=== PATIENT | male | born 1995 | race Caucasian/White ===

== ENCOUNTER 2017-07-20 13:08 | Emergency (ER) | payer MEDICAID, SELFPAY ==
[2017-07-20 13:30] VITALS: BP 154/127; PULSE 137; RESP 24; TEMP 36.9; O2SAT 96; BMI 38.4
--- NOTE | 2017-07-20 13:34 | XR_ITS ---
XR chest 2V HISTORY: ITS.REASON: cough x1 week ORDERING PHYSICIAN: Vida Sung MD PATIENT AGE: 22 years COMPARISON: None available FINDINGS: The cardiomediastinal silhouette and pulmonary vascularity are within normal limits. The lungs are clear without infiltrates, suspicious nodules, or pleural effusions. No acute bony abnormalities. IMPRESSION: Negative chest, no acute finding
--- NOTE | 2017-07-20 13:52 | HMH.EDGENADL ---
ED Disposition Clinical Impression: Acute bronchitis, Acute allergic conjunctivitis of right eye Disposition: Home, Self-Care Condition on Discharge: Fair Additional Instructions: stop smoking start abx and eye droips. see Dr Garcia for follow upp return if not better Prescriptions: Benzonatate [Tessalon Perle 100mg Cap] 100 mg PO Q4HP PRN #21 cap PRN Reason: Cough Amoxicillin [Amoxicillin 500mg Cap] 500 mg PO TID #21 cap Ketotifen Fumarate [Zaditor] 5 ml OP Q6 #1 drops Referrals: Hardik Jimenez [Primary Care Provider] - - Critical Care Critical Care Time: No Attestation: On 07/20/17, the high probability of a clinically significant, sudden or life threatening deterioration of the following system(s) required my full and direct attention, intervention and personal management. The time I documented below is in addition to time spent performing reported procedures but includes the following listed in this critical care notation. Medical Decision Making - Medical Records Medical records reviewed: Yes: I reviewed the patient's medical records. Vital Signs: 07/20/17 13:30 Temperature 98.4 F Temperature Source Oral Pulse Rate [Right Brachial] 137 H Respiratory Rate 24 Blood Pressure [Right Arm] 154/127 Blood Pressure Mean [Right Arm] 136 Blood Pressure Source [Right Arm] Automatic Cuff Blood Pressure Position [Right Arm] Sitting 02 Sat by Pulse Oximetry 96 Oxygen Delivery Method Room Air Orders (Tests/Meds): ORDERS Category Date Time Status Chest XR 2 view (NOT portable) [XR chest 2V] Stat Exams 07/20/17 13:34 Taken - Radiology Data #1 Image(s): Chest Image Reviewed: Yes I reviewed the patient's radiology image Preliminary Findings: Normal/NAD - Saad Inquiry Pt receiving controlled substance: No Saad was queried for this patient: No General Adult HPI - General Chief complaint: PAIN Stated complaint: cough,feels bad,right eye hurts Mode of Arrival: Ambulatory Limitations: No Limitations Description of Symptoms (Recalled from ER Triage Doc. by RN): pt c/o cough x1 week, rt eye pain x3 days, vomiting since last night - History of Present Illness HPI narrative: 22 years old white male smoker, works in [employer]. He developed nonproductive cough for 1 week and right red eye redness and irritation for 3 days. He tried [id number] cough medicine without relief. Onset (ago): week(s) Location: chest Radiation: non-radiation Severity: moderate Consistency: intermittent Relieving factors: none Exacerbating factors: other (cough.) Associated symptoms: other (Right watery eye.) - Related Data Previous Rx's Medication Instructions Recorded Amoxicillin [Amoxicillin 500mg 500 mg PO TID #21 cap 07/20/17 Cap] Benzonatate [Tessalon Perle 100mg 100 mg PO Q4HP PRN #21 cap 07/20/17 Cap] Ketotifen Fumarate [Zaditor] 5 ml OP Q6 #1 drops 07/20/17 Allergies Allergy/AdvReac Type Severity Reaction Status Date / Time No Known Allergies Allergy Verified 07/20/17 13:35 [facility] History I have reviewed the patient's past medical history: Yes Medical History: Denies:: Diabetes Mellitus Type 1, Diabetes Mellitus Type 2 - *Social History Smoking Status: Current some day smoker Tobacco Type: cigarettes Alcohol Intake: never - Psychiatric History Expresses thoughts of harming self/others: None Suicide Plan Description: No Plan ROS Obtained: Yes All systems reviewed & no additional complaints Physical Exam - General General appearance: alert, in no apparent distress - Head Head exam: atraumatic, normocephalic, normal inspection - Eye Eye exam: Present: PERRL, EOMI, other (Right eye irritation and redness, no papillae. ) - ENT ENT exam: Present: normal exam, normal oropharynx, mucous membranes moist, TM's normal bilaterally, normal external ear exam - Neck Neck exam: Present: normal inspection, full ROM, trachea midline. Absent: meni
--- NOTE | 2017-07-20 13:55 | ED_ITS ---
ED Disposition Clinical Impression: Acute bronchitis, Acute allergic conjunctivitis of right eye Disposition: Home, Self-Care Condition on Discharge: Fair Additional Instructions: stop smoking start abx and eye droips. see Dr Garcia for follow upp return if not better Prescriptions: Benzonatate [Tessalon Perle 100mg Cap] 100 mg PO Q4HP PRN #21 cap PRN Reason: Cough Amoxicillin [Amoxicillin 500mg Cap] 500 mg PO TID #21 cap Ketotifen Fumarate [Zaditor] 5 ml OP Q6 #1 drops Referrals: Hardik Jimenez [Primary Care Provider] - - Critical Care Critical Care Time: No Attestation: On 07/20/17, the high probability of a clinically significant, sudden or life threatening deterioration of the following system(s) required my full and direct attention, intervention and personal management. The time I documented below is in addition to time spent performing reported procedures but includes the following listed in this critical care notation. Medical Decision Making - Medical Records Medical records reviewed: Yes: I reviewed the patient's medical records. Vital Signs: 07/20/17 13:30 Temperature 98.4 F Temperature Source Oral Pulse Rate [Right Brachial] 137 H Respiratory Rate 24 Blood Pressure [Right Arm] 154/127 Blood Pressure Mean [Right Arm] 136 Blood Pressure Source [Right Arm] Automatic Cuff Blood Pressure Position [Right Arm] Sitting 02 Sat by Pulse Oximetry 96 Oxygen Delivery Method Room Air Orders (Tests/Meds): ORDERS Category Date Time Status Chest XR 2 view (NOT portable) [XR chest 2V] Stat Exams 07/20/17 13:34 Taken - Radiology Data #1 Image(s): Chest Image Reviewed: Yes I reviewed the patient's radiology image Preliminary Findings: Normal/NAD - Saad Inquiry Pt receiving controlled substance: No Saad was queried for this patient: No General Adult HPI - General Chief complaint: PAIN Stated complaint: cough,feels bad,right eye hurts Mode of Arrival: Ambulatory Limitations: No Limitations Description of Symptoms (Recalled from ER Triage Doc. by RN): pt c/o cough x1 week, rt eye pain x3 days, vomiting since last night - History of Present Illness HPI narrative: 22 years old white male smoker, works in [email or web address]. He developed nonproductive cough for 1 week and right red eye redness and irritation for 3 days. He tried [id number] cough medicine without relief. Onset (ago): week(s) Location: chest Radiation: non-radiation Severity: moderate Consistency: intermittent Relieving factors: none Exacerbating factors: other (cough.) Associated symptoms: other (Right watery eye.) - Related Data Previous Rx's Medication Instructions Recorded Amoxicillin [Amoxicillin 500mg 500 mg PO TID #21 cap 07/20/17 Cap] Benzonatate [Tessalon Perle 100mg 100 mg PO Q4HP PRN #21 cap 07/20/17 Cap] Ketotifen Fumarate [Zaditor] 5 ml OP Q6 #1 drops 07/20/17 Allergies Allergy/AdvReac Type Severity Reaction Status Date / Time No Known Allergies Allergy Verified 07/20/17 13:35 [facility] History I have reviewed the patient's past medical history: Yes Medical History: Denies:: Diabetes Mellitus Type 1, Diabetes Mellitus Type 2 - *Social History Smoking Status: Current some day smoker
[2017-07-20 14:01] VITALS: BP 130/70; PULSE 82; RESP 18; TEMP 37
== END 2017-07-20 14:01 | disposition home or self-care (01) ==
PROVIDERS: Emergency Provider Emergency Medicine; Family Provider Family Medicine; PCP Family Medicine
DX: J20.9 Acute bronchitis, unspecified (principal); H10.11 Acute atopic conjunctivitis, right eye
CPT/HCPCS: 71046; 99281

== ENCOUNTER 2020-10-25 13:01 | Emergency (ER) | payer OTHER, SELFPAY ==
[2020-10-25 13:05] VITALS: BP 133/78; PULSE 90; RESP 19; TEMP 37; O2SAT 98; BMI 38.0
--- NOTE | 2020-10-25 13:11 | XR_ITS ---
PROCEDURE: XR HAND RT MIN 3V CLINICAL INDICATION: WC Pain COMPARISON: No exams were available for comparison FINDINGS: At the proximal aspect of the 3rd metacarpal there is a very subtle transverse lucency. This may only be related to artifact as there are other areas of similar appearing lucencies in this may even appear to extend beyond the margin of the bone. Follow-up study in 7-10 days may provide further evaluation. No other significant anomalies are evident. IMPRESSION: Possible hairline fracture at the base of the 3rd metacarpal versus artifact. Dictated by: Zachary Ferrara MD 10/25/2020 13:54 Zachary Ferrara MD in [place] 10/25/2020 13:54
--- NOTE | 2020-10-25 13:36 | HMH.EDUTC ---
[facility] [place] Disposition Clinical Impression: Metacarpal bone fracture Qualifiers: Encounter type: initial encounter Metacarpal bone: third Fracture type: closed Metacarpal location: base Fracture alignment: nondisplaced Laterality: right Qualified Code(s): S62.342A - Nondisplaced fracture of base of third metacarpal bone, right hand, initial encounter for closed fracture Disposition: Home, Self-Care Condition on Discharge: Good Instructions: How To Perform RICE (Rest, Ice, Compress, Elevate), Hand Fracture Additional Instructions: *RICE, Rest the extremity, Ice 15-20 minutes 3-4 times daily, Compress- wear the ricky wrap as discussed as much as possible to help reduce swelling and pain, Elevate the extremity when at rest *Ricky wrap/Short arm splint is for support and help control swelling, use it except in the shower. Be sure that is not to tight but not to loose either *Elevate when resting *Ibuprofen every 6-8 hours as needed for pain an inflammation. If need something more can take Tylenol in between doses of Ibuprofen to help Immediately follow up with your family doctor for new or worsening of symptoms, or no noticeable improvement over the next 3-5 days Light duty until Friday until cleared by your Orthopedics to return full duty Prescriptions: Ibuprofen [Ibuprofen 800mg Tablet] 800 mg PO TIDP PRN #20 tab PRN Reason: Moderate Pain Transmission Status: Received by [facility] Referrals: Provider,MD Bob [Primary Care Provider] - As needed Kota Stearns MD [Staff Physician] - 11/02/20 1:00 pm Forms: Work/School Release Time of Disposition: 13:51 Medical Decision Making - Saad Inquiry Pt receiving controlled substance: No Saad was queried for this patient: No Vital Signs: 10/25/20 13:05 10/25/20 13:54 Temperature 98.6 F 98.6 F Temperature Source Temporal Artery Scan Oral Pulse Rate 90 Pulse Rate [Left Brachial] 90 Respiratory Rate 19 19 Blood Pressure 133/78 Blood Pressure [Left Arm] 133/78 Blood Pressure Mean [Left Arm] 96 Blood Pressure Source [Left Arm] Automatic Cuff Blood Pressure Position [Left Arm] Sitting 02 Sat by Pulse Oximetry 98 Oxygen Delivery Method Room Air - Radiology Data #1 Image(s): Hand Image Reviewed: Yes I have reviewed radiologist's interpretation IMPRESSION: Possible hairline fracture at the base of the 3rd metacarpal versus artifact. - Physician Consults Physician Consulted: Dr Stearns Time: 14:04 Reason -: Orthopedic Eval/Care Comment/Response: Spoke with Dr Stearns office that spoke with Dr Stearns he advised short arm splint and will see him in the office on November 02@1pm [facility] [place] HPI - General Stated complaint: AO [id number] injured left hand Time Seen by Provider: 10/25/20 13:36 Mode of Arrival: Ambulatory Source of Information: Patient Limitations: No Limitations Description of Symptoms (Recalled from Triage Doc. by RN): PATIENT C/O RIGHT HAND INJURY AFTER A PIECE OF EQUIPMENT FELL ON IT AT WORK YESTERDAY HEENT Symptoms (Recalled from RN notes): No Resp Symptoms (Recalled from RN notes): No Skin Symptoms (Recalled from RN notes): No MS Symptoms (Recalled from RN notes): Yes Functional Status (Recalled from RN notes): WNL - History of Present Illness Provider Complaint: Patient state that he was at work yesterday when a piece of equiptment fell and landed on the top his right hand State that he reported it to his boss States that today he was still having pain in his right hand and his fingers looked swollen so he came in to get it checked - Related Data Previous Rx's Medication Instructions Recorded Ibuprofen [Ibuprofen 800mg 800 mg PO TIDP PRN #20 tab 10/25/20 Tablet] Allergies Allergy/AdvReac Type Severity Reaction Status Date / Time No Known Allergies Allergy Verified 07/20/17 13:35 - Worker's Comp Is this a Worker's Comp case?: No [facility] History - Hepatitis A Screen Drug use history?: No High risk sexual behavi
[2020-10-25 13:54] VITALS: BP 133/78; PULSE 90; RESP 19; TEMP 37; O2SAT 98
== END 2020-10-25 14:15 | disposition home or self-care (01) ==
PROVIDERS: Emergency Provider Nurse Practitioner
DX: S62.342A Nondisplaced fracture of base of third metacarpal bone, right hand, initial encounter for closed fracture (principal); W31.89XA Contact with other specified machinery, initial encounter; Y92.69 Other specified industrial and construction area as the place of occurrence of the external cause; Y99.0 Civilian activity done for income or pay
CPT/HCPCS: 29125; 73130; 99202; G0463

== ENCOUNTER → 2020-11-15 08:59 | Outpatient (CLI) | payer OTHER, SELFPAY ==
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
== END ==
PROVIDERS: Visit Provider Orthopaedic Surgery
DX: S62.309A Unspecified fracture of unspecified metacarpal bone, initial encounter for closed fracture (principal)
CPT/HCPCS: 73130

== ENCOUNTER 2021-01-22 09:26 | Emergency (ER) | payer OTHER, SELFPAY ==
[2021-01-22 09:30] VITALS: BP 131/83; PULSE 84; RESP 20; TEMP 36.8; O2SAT 97; BMI 38.4
--- NOTE | 2021-01-22 09:56 | HMH.EDUTC ---
[facility] [place] Disposition Clinical Impression: Exposure to COVID-19 virus Disposition: Home, Self-Care Condition on Discharge: Good Instructions: DI for COVID-19 (Suspected or Confirmed ), Coronavirus Disease 2019, Preventing the Spread of Coronavirus Discharge Instructions Additional Instructions: *Monitor Temp, Over the counter Motrin or Tylenol as directed/as needed Tylenol every 4 hours and Motrin every 6 hours (as long as your family doctor has told you that you can take it) for fever or pain. and straight to ER if unable to lower temp less than 101.0 after medication given Follow up IMMEDIATELY for new or worsening symptoms or no Noticeable improvement over the next 48-72 hours. 911 for difficulty breathing or swallowing You were tested for today for COVID19 your test result should be back in the next 24-48 hours, you may call to the [facility] to see if your test results are back in the next 48 hours [phone] [facility] hours are 9am-9pm You was given a handout with instructions for Self Quarantine and Self isolation for while you wait on test results and what to do if they are positive If you are positive the Health Dept will be contacting you also Make sure to take your Vitamins Vit. C Vit D and Zinc if you can take them Referrals: Provider,Referral, MD [Primary Care Provider] - As needed Forms: Work/School Release Time of Disposition: 09:57 Medical Decision Making - Saad Inquiry Pt receiving controlled substance: No Saad was queried for this patient: No Vital Signs: 01/22/21 09:30 Temperature 98.3 F Temperature Source Oral Pulse Rate [Right Brachial] 84 Respiratory Rate 20 Blood Pressure [Right Arm] 131/83 Blood Pressure Mean [Right Arm] 99 Blood Pressure Source [Right Arm] Automatic Cuff Blood Pressure Position [Right Arm] Sitting 02 Sat by Pulse Oximetry 97 Oxygen Delivery Method Room Air Orders (Tests/Meds): ORDERS Category Date Time Status Covid-19 Nasal PCR ([facility]) Routine Lab 01/22/21 09:42 Ordered [facility] [place] HPI - General Stated complaint: Covid Test Time Seen by Provider: 01/22/21 09:56 Mode of Arrival: Ambulatory Source of Information: Patient Limitations: No Limitations Description of Symptoms (Recalled from Triage Doc. by RN): PATIENT EXPOSED TO COVID, NEEDS TEST TO RETURN TO WORK HEENT Symptoms (Recalled from RN notes): No Resp Symptoms (Recalled from RN notes): No Skin Symptoms (Recalled from RN notes): No MS Symptoms (Recalled from RN notes): No Functional Status (Recalled from RN notes): WNL - History of Present Illness Provider Complaint: Patient state that he was recently around someone that tested positive for COVID State that he is not having any symptoms but work wanted him to get tested before he can return - Related Data Previous Rx's Medication Instructions Recorded Ibuprofen [Ibuprofen 800mg 800 mg PO TIDP PRN #20 tab 10/25/20 Tablet] Allergies Allergy/AdvReac Type Severity Reaction Status Date / Time No Known Allergies Allergy Verified 11/15/20 09:50 - Worker's Comp Is this a Worker's Comp case?: No [facility] History - Hepatitis A Screen Drug use history?: No High risk sexual behaviors?: No History of sexually transmitted infection?: No Currently employed?: No Childcare worker?: No Do you have indoor plumbing?: Yes Do you have electricity?: Yes Attestation statement:: This patient has been screened for Hepatitis A risk factors. I have reviewed the patient's past medical history: Yes Medical History: Denies:: Cancer, Diabetes Mellitus Type 1, Diabetes Mellitus Type 2, MRSA Amputation: No - Social History Smoking Status: Current some day smoker Tobacco Type: smokeless tobacco # Packs/Day (cigarettes): 1 Alcohol Intake: never Occupational Status: other Family Hx:: No significant family history ROS Obtained: Yes All systems reviewed & no additional complaints, Yes Systems reviewed as appropriate & no additional complaints - Constitutional
[2021-01-22 10:02] VITALS: BP 131/83; PULSE 84; RESP 20; TEMP 36.8; O2SAT 97
--- NOTE | 2021-01-23 09:26 | PC.NURSE ---
PT NOTIFIED OF POSITIVE COVID RESULT
== END 2021-01-22 10:05 | disposition home or self-care (01) ==
PROVIDERS: Emergency Provider Nurse Practitioner
DX: U07.1 COVID-19 (principal); F17.210 Nicotine dependence, cigarettes, uncomplicated
CPT/HCPCS: 99202; G0463; U0003

== ENCOUNTER → 2021-04-09 13:02 | Outpatient (CLI) | payer BC, SELFPAY ==
[2021-04-09 13:26] LABS: Microscopic, Urine URINE MICROSCOPIC (MICROSCOPIC)
[2021-04-09 13:42] LABS: Basophils # 0.1 K/mm3 (0-0.2); Eosinophils # 0.1 K/mm3 (0.0-0.4); Eosinophils % 1.8 % (0.1-12.0); Hematocrit 50.4 % (42.0-52.0); Lymphocytes # 1.6 K/mm3 (0.7-4.5); Lymphocytes % 28.9 % (10-50); Mean Corpuscular HGB Conc 33.7 g/dL (31.8-35.4); Mean Corpuscular Hemoglobin 29.6 pg (27.0-31.2); Mean Corpuscular Volume 87.9 fl (80-94); Mean Platelet Volume 9.4 fl (7.4-10.4); Monocytes # 0.3 K/mm3 (0.1-1.0); Monocytes % 5.6 % (1.7-9.3); Neutrophils # 3.4 K/mm3 (1.8-7.8); Neutrophils % 62.6 % (37.0-80.0); Platelet Count 199 K/mm3 (142-424); Red Blood Count 5.74 M/mm3 (4.60-6.20); Red Cell Distribution Width 13.7 % (11.5-17.5); White Blood Count 5.4 K/mm3 (4.8-10.8)
[2021-04-09 13:44] LABS: Appearance,Urine CLEAR (Clear); Blood, Urine Negative (Negative); Color,Urine YELLOW (Yellow); Glucose,Urine (UA) Negative (Negative); Ketones,Urine TRACE (Negative); Leukocyte Esterase,Urine Negative (Negative); Nitrate,Urine Negative (Negative); Protein,Urine Negative (Negative); Specific Gravity, Urine >= 1.030 (1.005-1.030)
[2021-04-09 13:45] LABS: Bilirubin,Urine 1+ (Negative)
[2021-04-09 13:50] LABS: Hemoglobin A1C 4.6 % (4.0-6.0)
[2021-04-09 13:55] LABS: Squamous Epithelial Cell,Urine Occasional #/hpf (0-5)
[2021-04-09 14:13] LABS: Alanine Aminotransferase 81 U/L (12-78); Albumin Level 4.5 g/dl (3.5-5.0); Alkaline Phosphatase 57 U/L (38-126); Anion Gap 12.4 mEq/L (5-15); Aspartate Amino Transferase 54 U/L (17-59); Bilirubin,Total 0.8 mg/dl (0.2-1.3); Blood Urea Nitrogen 6 mg/dl (9-20); Calcium 9.8 mg/dl (8.4-10.2); Carbon Dioxide 29 mmol/L (22.0-30.0); Chloride 105 mmol/L (98-107); Chol/HDL Ratio 3.2 (1-3.5); Cholesterol 117 mg/dl (140-200); Estimated Glomerular Filt Rate 119 ml/min (>60); GFR (African American) 144 ML/MIN (>60); Globulin 2.3 g/dL (1.3-3.2); Glucose 119 mg/dl (74-100); HDL Cholesterol 37 mg/dl (40-60); Potassium 4.4 mmoL/L (3.5-5.1); Sodium 142 mmol/L (136-145); Total Protein,Serum 6.8 g/dl (6.3-8.2); Triglycerides 73 mg/dl (30-150); VLDL Cholesterol 15 mg/dL (0-40)
[2021-04-09 14:23] LABS: Direct LDL Cholesterol 65.23 mg/dL (100-129)
[2021-04-11 01:16] LABS: Neisseria gonorrhoeae, NAA Negative (Negative)
[2021-04-11 10:25] LABS: HIV Screen 4th Generation wRfx Non Reactive (Non Reactive)
== END ==
PROVIDERS: Visit Provider Internal Medicine Adolescent Medicine
DX: Z00.00 Encounter for general adult medical examination without abnormal findings (principal); E66.9 Obesity, unspecified; Z68.38 Body mass index [BMI] 38.0-38.9, adult; Z11.4 Encounter for screening for human immunodeficiency virus [HIV]
CPT/HCPCS: 36415; 80053; 80061; 81001; 83036; 85025; 86703; 87491; 87591; G0432

== ENCOUNTER 2021-05-10 17:27 | Emergency (ER) | payer OTHER, BC, SELFPAY ==
[2021-05-10 17:30] VITALS: BP 151/99; PULSE 94; RESP 16; TEMP 37; O2SAT 98; BMI 37.2
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
[2021-05-10 18:48] VITALS: BP 125/74; PULSE 78; RESP 18; TEMP 36.6; O2SAT 98
== END 2021-05-10 18:50 | disposition home or self-care (01) ==
PROVIDERS: Emergency Provider Emergency Medicine; PCP Family Medicine
DX: S06.0X0A Concussion without loss of consciousness, initial encounter (principal); V43.52XA Car driver injured in collision with other type car in traffic accident, initial encounter; Y92.414 Local residential or business street as the place of occurrence of the external cause
CPT/HCPCS: 70450; 99282

== ENCOUNTER 2021-06-19 11:34 | Emergency (ER) | payer SELFPAY ==
[2021-06-19 11:37] VITALS: BP 132/77; PULSE 77; RESP 16; TEMP 37.2; O2SAT 98; BMI 36.9
--- NOTE | 2021-06-19 11:51 | CT_ITS ---
FINAL REPORT TECHNIQUE: After the administration of intravenous contrast, axial images were obtained through the abdomen and pelvis by computed tomography. This study was performed with technique to keep radiation doses as low as reasonably achievable, (ALARA). Individualized dose reduction techniques using automated exposure control or adjustment of the MA and/or KV according to the patient's size were employed. CLINICAL HISTORY: left groin pain, known hernia COMPARISON: 01/04/2019 FINDINGS: Abdomen: The lung bases are clear. The liver is normal in size and attenuation. Gallbladder is present. The spleen is unremarkable. The adrenals are normal. The pancreas is unremarkable. The kidneys enhance appropriately. The aorta is normal in caliber. There is no free fluid or adenopathy. Pelvis: The appendix is normal. The urinary bladder is unremarkable. There is no free fluid or adenopathy. There is a new, left inguinal hernia containing fat. IMPRESSION: New, left inguinal hernia containing fat. Otherwise, unremarkable exam. Reviewed, Interpreted and Dictated by Rob Thomas III, MD Transcribed by Lady Hill Authenticated by Rob Thomas III, MD on 06/19/2021 03:13:[address] [facility]
--- NOTE | 2021-06-19 12:16 | HMH.EDGENADL ---
ED Disposition Clinical Impression: Left inguinal hernia Disposition: Home, Self-Care Condition on Discharge: Good Instructions: Groin Hernia -- Adult Referrals: Juan José Parker MD [Primary Care Provider] - Rob Vargas MD [Staff Physician] - - Critical Care Critical Care Time: No Attestation: On 06/19/21, the high probability of a clinically significant, sudden or life threatening deterioration of the following system(s) required my full and direct attention, intervention and personal management. The time I documented below is in addition to time spent performing reported procedures but includes the following listed in this critical care notation. Medical Decision Making - Medical Records Medical records reviewed: Yes: I reviewed the patient's medical records. - Saad Inquiry Pt receiving controlled substance: Yes Saad was queried for this patient: No Reason not queried -: Saad login issues Risks and benefits of using a controlled substance: were discussed with pt by me Vital Signs: 06/19/21 11:37 06/19/21 13:27 06/19/21 13:30 Temperature 99 F Temperature Source Oral Pulse Rate 79 79 Pulse Rate [Radial] 77 Respiratory Rate 16 Blood Pressure 107/65 L 122/56 L Blood Pressure [Right Arm] 132/77 Blood Pressure Mean 79 79 Blood Pressure Mean [Right Arm] 95 Blood Pressure Position [Right Arm] Sitting 02 Sat by Pulse Oximetry 98 98 98 Oxygen Delivery Method Room Air - Lab Data Lab Results 06/19/21 12:24: WBC 6.0, RBC 5.74, Hgb 16.9, Hct 50.8, MCV 88.5, MCH 29.5, MCHC 33.3, RDW 14.3, Plt Count 198, MPV 9.0, Neut % (Auto) 57.9, Lymph % (Auto) 28.9, Riley % (Auto) 6.4, Eos % (Auto) 4.9, Baso % (Auto) 1.9, Neut # (Auto) 3.5, Lymph # (Auto) 1.7, Riley # (Auto) 0.4, Eos # (Auto) 0.3, Baso # (Auto) 0.1 06/19/21 12:24: Sodium 140, Potassium 3.5, Chloride 103, Carbon Dioxide 29, Anion Gap 11.5, BUN 8 L, Creatinine 0.90, Estimated Creat Clear 203, Estimated GFR 104, Est GFR ( Amer) 125, Glucose 105 H, Calcium 9.3, Total Bilirubin 0.7, AST 36, ALT 47, Alkaline Phosphatase 58, Total Protein 6.4, Albumin 4.2, Globulin 2.2, Albumin/Globulin Ratio 1.9 H, Lipase 48 Result diagrams: 06/19/21 12:24 06/19/21 12:24 Orders (Tests/Meds): ED MEDICATIONS Discontinued Medications Generic Name Dose Route Start Last Admin Trade Name Freq PRN Reason Stop Dose Admin Diatrizoate Meglum/Diatrizoate Sod 30 ml 06/19/21 11:51 06/19/21 12:26 Diatrizoate Molly 66% & Diatrizoate Na 10% 30ml Udc PO 06/19/21 11:52 30 ml ONCE ONE Administration Sodium Chloride 1,000 mls @ 999 mls/hr 06/19/21 12:00 06/19/21 12:27 Sod Chlor 0.9% 1000ml Bag IV 06/19/21 13:00 999 mls/hr .Q1H1M CEM Administration Iopamidol 75 ml 06/19/21 13:49 06/19/21 13:50 Iopamidol-370 (76%);100ml Bottle IV 06/19/21 13:50 75 ml ONCE ONE Administration Morphine Sulfate 4 mg 06/19/21 11:52 06/19/21 12:28 Morphine 4mg/Ml Syringe IV 06/19/21 11:53 Not Given ONCE ONE Ondansetron HCl 4 mg 06/19/21 11:52 06/19/21 12:27 Ondansetron 4mg/2ml Vial IV 06/19/21 11:53 4 mg ONCE ONE Administration Sodium Chloride 10 ml 06/19/21 13:49 06/19/21 13:50 Sodium Chloride 0.9% 10ml Syr (Rad Only) IV 06/19/21 13:50 10 ml ONCE ONE Administration - CT Data CT Scan: Abdomen, Pelvis Time Received: 15:[address] Reviewed: Yes: I have reviewed the patient's CT results, I have viewed the radiologist's interpretation Findings Narrative: IMPRESSION: New, left inguinal hernia containing fat. Otherwise, unremarkable exam. - Reevaluation(s) Time: 15:19 Reevaluation #1: On reevaluation, the patient is feeling better. He does have a small left inguinal hernia containing fat. No evidence of obstruction. Patient tolerating oral intake. Patient be set up with general surgery. Given strict return precautions. Verbalized understanding. Medical Decision Narrative: 25-year-old male pr
--- NOTE | 2021-06-19 12:28 | PC.NURSE ---
FINISHED GASTROGRAPHIN
[2021-06-19 12:39] LABS: Basophils # 0.1 K/mm3 (0-0.2); Basophils % 1.9 % (0.1-2.0); Eosinophils # 0.3 K/mm3 (0.0-0.4); Eosinophils % 4.9 % (0.1-12.0); Hematocrit 50.8 % (42.0-52.0); Hemoglobin 16.9 g/dL (14.1-18.0); Lymphocytes # 1.7 K/mm3 (0.7-4.5); Lymphocytes % 28.9 % (10-50); Mean Corpuscular HGB Conc 33.3 g/dL (31.8-35.4); Mean Corpuscular Hemoglobin 29.5 pg (27.0-31.2); Mean Corpuscular Volume 88.5 fl (80-94); Monocytes # 0.4 K/mm3 (0.1-1.0); Monocytes % 6.4 % (1.7-9.3); Neutrophils # 3.5 K/mm3 (1.8-7.8); Neutrophils % 57.9 % (37.0-80.0); Platelet Count 198 K/mm3 (142-424); Red Blood Count 5.74 M/mm3 (4.60-6.20); Red Cell Distribution Width 14.3 % (11.5-17.5)
[2021-06-19 12:43] LABS: Alanine Aminotransferase 47 U/L (12-78); Albumin Level 4.2 g/dl (3.5-5.0); Albumin/Globulin Ratio 1.9 (1.1-1.8); Alkaline Phosphatase 58 U/L (38-126); Anion Gap 11.5 mEq/L (5-15); Aspartate Amino Transferase 36 U/L (17-59); Bilirubin,Total 0.7 mg/dl (0.2-1.3); Blood Urea Nitrogen 8 mg/dl (9-20); Calcium 9.3 mg/dl (8.4-10.2); Carbon Dioxide 29 mmol/L (22.0-30.0); Chloride 103 mmol/L (98-107); Creatinine Clearance Estimated 203 mL/min (50-200); Estimated Glomerular Filt Rate 104 ml/min (>60); GFR (African American) 125 ML/MIN (>60); Globulin 2.2 g/dL (1.3-3.2); Glucose 105 mg/dl (74-100); Lipase 48 U/L (23-300); Potassium 3.5 mmoL/L (3.5-5.1); Sodium 140 mmol/L (136-145); Total Protein,Serum 6.4 g/dl (6.3-8.2)
[2021-06-19 13:27] VITALS: BP 107/65; PULSE 79; O2SAT 98
[2021-06-19 13:30] VITALS: BP 122/56; PULSE 79; O2SAT 98
[2021-06-19 16:04] VITALS: BP 136/74; PULSE 78; RESP 16; TEMP 36.6; O2SAT 98
== END 2021-06-19 16:05 | disposition home or self-care (01) ==
PROVIDERS: Emergency Provider Emergency Medicine; PCP Internal Medicine Adolescent Medicine
DX: K40.90 Unilateral inguinal hernia, without obstruction or gangrene, not specified as recurrent (principal); F17.220 Nicotine dependence, chewing tobacco, uncomplicated
CPT/HCPCS: 74177; 80053; 83690; 85025; 96365; 96375; 99283; J2405; Q9967

== ENCOUNTER → 2021-06-30 11:02 | Outpatient (CLI) | payer SELFPAY ==
[2021-06-30 11:05] LABS: MANUAL DIFFERENTIAL MANUAL DIFFERENTIAL (MANUAL DIFF)
[2021-06-30 13:09] LABS: Basophils # 0.2 K/mm3 (0-0.2); Basophils % 1.9 % (0.1-2.0); Eosinophils # 0.2 K/mm3 (0.0-0.4); Eosinophils % 2.8 % (0.1-12.0); Hematocrit 55.9 % (42.0-52.0); Lymphocytes # 2.1 K/mm3 (0.7-4.5); Lymphocytes % 26.3 % (10-50); Mean Corpuscular HGB Conc 33.4 g/dL (31.8-35.4); Mean Corpuscular Hemoglobin 30.4 pg (27.0-31.2); Mean Platelet Volume 9.5 fl (7.4-10.4); Monocytes # 0.7 K/mm3 (0.1-1.0); Monocytes % 8.4 % (1.7-9.3); Neutrophils # 4.9 K/mm3 (1.8-7.8); Neutrophils % 60.7 % (37.0-80.0); Platelet Count 177 K/mm3 (142-424); Red Blood Count 6.14 M/mm3 (4.60-6.20); Red Cell Distribution Width 14.4 % (11.5-17.5); White Blood Count 8.1 K/mm3 (4.8-10.8)
[2021-06-30 13:23] LABS: Hemoglobin 18.5 g/dL (14.1-18.0)
[2021-06-30 14:36] LABS: Anion Gap 14.8 mEq/L (5-15); Blood Urea Nitrogen 13 mg/dl (9-20); Calcium 9.9 mg/dl (8.4-10.2); Carbon Dioxide 29 mmol/L (22.0-30.0); Chloride 99 mmol/L (98-107); Estimated Glomerular Filt Rate 91 ml/min (>60); GFR (African American) 110 ML/MIN (>60); Glucose 76 mg/dl (74-100); Potassium 4.8 mmoL/L (3.5-5.1); Sodium 138 mmol/L (136-145)
[2021-06-30 20:08] LABS: Lymphocytes % 13 % (10-50); Monocytes % 5 % (2-9); Neutrophils % 78 % (42-76); Platelet Estimate Normal; RBC Morphology Normal; Total Cells Counted 100
== END ==
PROVIDERS: PCP Internal Medicine Adolescent Medicine; Visit Provider Surgery
DX: Z01.812 Encounter for preprocedural laboratory examination (principal); Z11.52 Encounter for screening for COVID-19; K40.90 Unilateral inguinal hernia, without obstruction or gangrene, not specified as recurrent
CPT/HCPCS: 36415; 80048; 85007; 85014; 85018; 85048; 85049; C9803; U0003; U0005

== ENCOUNTER 2022-06-12 15:25 | Emergency (ER) | payer SELFPAY ==
--- NOTE | 2022-06-12 15:36 | EXP.UTC ---
Discharge Plan Disposition Patient Disposition: Home, Self-Care Condition: Good Prescriptions Prescriptions: New ondansetron 4 mg Tablet,Disintegrating 4 mg PO Q8H PRN (Reason: Nausea) Qty: 20 0RF Referrals Follow up/Referrals: Juan José Parker MD [Primary Care Provider] - See instructions Activity Restrictions/Add. Instructions Additional Instructions/Restrictions: Drink plenty of fluids. Take tylenol or ibuprofen for pain or fever. Take the medications as directed. Follow up with your regular doctor. GO TO THE ER FOR ANY WORSENING SYMPTOMS Clinical Impressions Clinical Impression: Gastroenteritis Stand Alone Forms Stand Alone Forms: Work/School Release Instructions Patient Instructions: DI for Viral Gastroenteritis -- Adult, Ondansetron Discharge ED Provider: Babatunde Cole [facility] General Stated complaint: Weak, nausea, V/D Time Seen by Provider: 06/12/22 15:36 History of Present Illness Provider Complaint: He states that since this morning he has had n/v/d. He denies any fever and chills. He denies any known sick contacts. Related Data Previous Rx's Medication Instructions Recorded ondansetron 4 mg disintegrating 4 mg PO Q8H PRN Nausea #20 tabs 06/12/22 tablet Allergies Allergy/AdvReac Type Severity Reaction Status Date / Time No Known Allergies Allergy Verified 02/12/22 08:54 [facility] Disclaimer: The information contained in this section may have been updated after the patient was seen, as this information can be updated by other users. Medical History Hypertension Surgical History History of tonsillectomy Family History Other Heart attack Hypertension Social History Smoking Status: Current some day smoker tobacco type: smokeless tobacco alcohol intake: never current occupational status: other Travel in the last 8 weeks: None caffeine: Yes ROS Obtained: Yes All systems reviewed & no additional complaints except as documented Constitutional Constitutional: Denies chills, Denies fever(s) and Reports poor appetite ENT Ears, Nose, Mouth, and Throat: Denies dizziness and Denies sore throat Cardiovascular Cardiovascular: Denies dyspnea Respiratory Respiratory: Denies chest congestion, Denies cough and Denies dyspnea Gastrointestinal Gastrointestingal: Reports as per HPI Genitourinary Male Genitourinary: Denies hematuria, Denies urinary frequency, Denies urinary hesitancy, Denies urinary incontinence and Denies urinary urgency Musculoskeletal Musculoskeletal: Denies arthralgias Integumentary/Breasts Skin/Breast: Denies rash Neurologic Neurologic: Denies dizziness Physical Exam General General appearance: alert and in no apparent distress Head Head exam: atraumatic and normocephalic Eye Eye exam: Present normal appearance, PERRL and EOMI ENT ENT exam: Present normal exam, normal oropharynx, mucous membranes moist, TM's normal bilaterally and normal external ear exam Neck Neck exam: Present normal inspection, full ROM and trachea midline; Absent tenderness, meningismus or lymphadenopathy Chest Chest inspection: Present normal inspection and symmetric chest wall rise; Absent tenderness, rash or abscess Respiratory Respiratory exam: Present normal lung sounds bilaterally; Absent respiratory distress, wheezes or stridor Cardiovascular Cardiovascular exam: Present regular rate and normal rhythm; Absent irregular rhythm, systolic murmur, diastolic murmur or JVD Abdominal Exam Abdominal exam: Present soft and normal bowel sounds; Absent distention, tenderness, guarding, rebound, rigidity, psoas sign, obturator sign, heel tap sign, Barker's sign, Rovsing's sign or tenderness at McBurney's Point Extremities Exam Extremities exam: Present normal in
[2022-06-12 15:40] VITALS: BP 115/55; PULSE 111; RESP 19; TEMP 36.7; O2SAT 97; BMI 38.4
[2022-06-12 16:56] VITALS: BP 115/55; PULSE 111; RESP 19; TEMP 36.7; O2SAT 97
== END 2022-06-12 16:56 | disposition home or self-care (01) ==
PROVIDERS: Emergency Provider Nurse Practitioner Family; PCP Internal Medicine Adolescent Medicine
DX: K52.9 Noninfective gastroenteritis and colitis, unspecified (principal)
CPT/HCPCS: 99212; G0463

== ENCOUNTER 2022-11-08 01:24 | Emergency (ER) | payer SELFPAY ==
[2022-11-08 01:36] VITALS: BP 0/0; PULSE 0; RESP 0; TEMP -17.7; TEMP 0
== END 2022-11-08 01:36 | disposition left against medical advice (07) ==
LOC: ER 01:31
PROVIDERS: Emergency Provider Emergency Medicine; PCP Internal Medicine Adolescent Medicine
DX: Z53.21 Procedure and treatment not carried out due to patient leaving prior to being seen by health care provider (principal)
CPT/HCPCS: 99211

== ENCOUNTER 2022-12-05 13:17 | Emergency (ER) | payer SELFPAY ==
[2022-12-05 13:30] VITALS: BP 141/88; PULSE 85; RESP 18; TEMP 37; O2SAT 98; BMI 36.7
[2022-12-05 13:36] LABS: Microscopic, Urine URINE MICROSCOPIC (MICROSCOPIC)
--- NOTE | 2022-12-05 13:43 | EXP.UTC ---
Discharge Plan Disposition Patient Disposition: Home, Self-Care Condition: Good Prescriptions Prescriptions: New metronidazole 500 mg tablet 500 mg PO BID 7 Days Qty: 14 0RF Referrals Follow up/Referrals: Provider,Referral, MD [Primary Care Provider] - See instructions Activity Restrictions/Add. Instructions Additional Instructions/Restrictions: Avoid sexual activity until you and your partner complete treatment Follow up with your Family Doctor if no improvement or return of symptoms Return if needed Clinical Impressions Clinical Impression: Exposure to trichomonas Instructions Patient Instructions: Metronidazole, DI for Trichomoniasis Discharge ED Provider: Kayy Santos [facility] [place] HPI General Stated complaint: Possible trichomoniasis Mode of Arrival: Ambulatory Source of Information: Patient Limitations: No Limitations Time Seen by Provider: 12/05/22 13:43 Description of Symptoms (Recalled from Triage Doc. by RN): PATIENT C/O RECENT EXPOSURE TO TRICHOMONIASIS, DENIES SYMPTOMS AT THIS TIME HEENT Symptoms (Recalled from RN notes): No Resp Symptoms (Recalled from RN notes): No Skin Symptoms (Recalled from RN notes): No MS Symptoms (Recalled from RN notes): No Functional Status (Recalled from RN notes): WNL History of Present Illness Provider Complaint: Patient states that his girlfriend found out today that she is positive for Trich States that he has not been having any symptoms but has unprotected sex with her all the time and wanted to come in and get checked and treated Related Data Previous Rx's Medication Instructions Recorded metronidazole 500 mg tablet 500 mg PO BID 7 days #14 tabs 12/05/22 Allergies Allergy/AdvReac Type Severity Reaction Status Date / Time No Known Allergies Allergy Verified 02/12/22 08:54 Worker's Comp Is this a Worker's Comp case?: No [facility] Disclaimer: The information contained in this section may have been updated after the patient was seen, as this information can be updated by other users. Medical History Hypertension Surgical History History of tonsillectomy Family History Other Heart attack Hypertension Social History Smoking Status: Current some day smoker tobacco type: smokeless tobacco alcohol intake: never current occupational status: other Travel in the last 8 weeks: None caffeine: Yes ROS Obtained: Yes All systems reviewed & no additional complaints except as documented and Yes Systems reviewed as appropriate & no additional complaints except as documented Constitutional Constitutional: Reports system reviewed and no additional complaints, except as documented and Reports as per HPI ENT Ears, Nose, Mouth, and Throat: Reports system reviewed and no additional complaints, except as documented and Reports as per HPI Cardiovascular Cardiovascular: Reports system reviewed and no additional complaints, except as documented and Reports as per HPI Respiratory Respiratory: Reports system reviewed and no additional complaints, except as documented and Reports as per HPI Gastrointestinal Gastrointestingal: Reports system reviewed and no additional complaints, except as documented and as per HPI; Denies abdominal pain Genitourinary Male Genitourinary: Reports system reviewed and no additional complaints, except as documented, Reports as per HPI, Denies difficulty with ejaculations, Denies genital lesions, Denies genital pain, Denies painful ejaculations and Denies penile discharge Musculoskeletal Musculoskeletal: Reports system reviewed and no additional complaints, except as documented and Reports as per HPI Physical Exam General General appearance: alert and in no apparent distress Respiratory Respiratory exam: Present normal lung sound
[2022-12-05 13:44] LABS: Appearance,Urine CLEAR (Clear); Bilirubin,Urine Negative (Negative); Blood, Urine Negative (Negative); Color,Urine YELLOW (Yellow); Glucose,Urine (UA) Negative (Negative); Ketones,Urine Negative (Negative); Leukocyte Esterase,Urine Negative (Negative); Nitrate,Urine Negative (Negative); PH,Urine 5.5 (5.0-8.5); Protein,Urine Negative (Negative); Specific Gravity, Urine >= 1.030 (1.005-1.030); Urobilinogen,Urine 0.2 EU/dl (0.2)
[2022-12-05 13:55] LABS: RBC,Urine Occasional #/hpf (0-3); WBC,Urine Occasional #/hpf (0-3)
[2022-12-05 13:56] LABS: Bacteria,Urine Trace /lpf; Mucus,Urine Trace /lpf; Squamous Epithelial Cell,Urine Occasional #/hpf (0-5)
[2022-12-05 14:14] VITALS: BP 141/88; PULSE 85; RESP 18; TEMP 37; O2SAT 98
== END 2022-12-05 14:17 | disposition home or self-care (01) ==
PROVIDERS: Emergency Provider Nurse Practitioner
DX: Z20.2 Contact with and (suspected) exposure to infections with a predominantly sexual mode of transmission (principal); I10 Essential (primary) hypertension; F17.200 Nicotine dependence, unspecified, uncomplicated
CPT/HCPCS: 81001; 99212; 99213; G0463

== ENCOUNTER 2023-08-18 16:04 | Emergency (ER) | payer SELFPAY ==
[2023-08-18 16:25] VITALS: BP 130/86; PULSE 101; RESP 21; TEMP 37.1; O2SAT 100; BMI 40.4
--- NOTE | 2023-08-18 16:39 | ED_ITS ---
Discharge Plan Disposition Patient Disposition: Home, Self-Care Condition: Good Prescriptions Prescriptions: New ondansetron 4 mg Tablet,Disintegrating 4 mg PO Q8H PRN (Reason: Nausea) Qty: 20 0RF Referrals Follow up/Referrals: Provider,Referral, [Primary Care Provider] - See instructions Activity Restrictions/Add. Instructions Additional Instructions/Restrictions: Drink extra fluids with and between meals. If you have difficulty drinking, try very small amounts of water or suck on ice chips. ? Avoid fruit juices, as these do not replace minerals and can actually increase diarrhea. ? Children and adults can use sports drinks to replenish electrolytes. Younger children and infants should use products formulated for children, like oral rehydration solutions. ? Eat food in small amounts and let your stomach recover. ? Get lots of rest. You may feel tired or weak. ? No greasy or fried foods for the next 24-48 hours BRAT diet Bananas Rice Apples and [place] ? Make sure to drink plenty of liquids ? Return if needed ? Straight to ER if any life threatening symptoms ? Zofran as prescribed ? Follow up with family doctor in the next 48-72 hours if no improvement or any worsening of symptoms Clinical Impressions Clinical Impression: Viral syndrome Instructions Patient Instructions: DI for Vomiting -- Adult, Ondansetron, DI for Petechiae Discharge ED Provider: Kayy Santos [facility] General Stated complaint: Vomiting,fever,rash on face Mode of Arrival: Ambulatory Source of Information: Patient Limitations: No Limitations Time Seen by Provider: 08/18/23 16:39 Description of Symptoms (Recalled from Triage Doc. by RN): PATIENT C/O FEVER, RASH, AND VOMITING THAT STARTED LAST NIGHT HEENT Symptoms (Recalled from RN notes): No Resp Symptoms (Recalled from RN notes): No Skin Symptoms (Recalled from RN notes): Yes MS Symptoms (Recalled from RN notes): No Functional Status (Recalled from RN notes): WNL History of Present Illness Provider Complaint: Patient states that he started last night with Nausea and vomiting States that his told him he felt like he had a fever and noticed rash on his face after he had vomiting episode States today he was still feeling achy and having N/V so he came in to get checked Related Data Previous Rx's Medication Instructions Recorded ondansetron 4 mg disintegrating 4 mg PO Q8H PRN Nausea #20 tabs 08/18/23 tablet Allergies Allergy/AdvReac Type Severity Reaction Status Date / Time No Known Allergies Allergy Verified 02/12/22 08:54 Worker's Comp Is this a Worker's Comp case?: No [facility] Disclaimer: The information contained in this section may have been updated after the patient was seen, as this information can be updated by other users. Medical History Hypertension Surgical History History of tonsillectomy Family History Other Heart attack Hypertension Social History Smoking Status: Current some day smoker tobacco type: smokeless tobacco alcohol intake: never current occupational status: other Travel in the last 8 weeks: None caffeine: Yes ROS Obtained: Yes All systems reviewed & no additional complaints except as documented and Yes Systems reviewed as appropriate & no additional complaints except as documented Constitutional Constitutional: Reports system reviewed and no additional complaints, except as documented, Reports as per HPI, Reports body ache, Reports chills and Reports fever(s) Eyes Eyes: Reports system reviewed and no additional complaints, except as documented and Reports as per HPI Cardiovascular Cardiovascular: Reports system reviewed and no additional complaints, except as documented and Reports as per HPI Respiratory Respiratory: Reports system reviewed and no additional complaints, except as documented and Reports as per HPI Gastrointestinal Gastrointestingal: Reports system reviewed and no additional complaints, except as documented, as per HPI, nausea and vomiting Physical Exam General General appearance: alert and in no apparent distress ENT ENT exam: Present mucous membranes moist Expanded ENT Exam Throat exam: Present other (Pharyngeal erythema noted ) Respiratory Respiratory exam: Present normal lung sounds bilaterally; Absent respiratory distress or wheezes Cardiovascular Cardiovascular exam: Present regular rate, normal rhythm and normal heart sounds Abdominal Exam Abdominal exam: Present soft and normal bowel sounds; Absent distention or tenderness Neurological Exam Neurological exam: Present alert, oriented X3 and normal gait Skin Skin exam: Present other (mild petechia like rash noted on forehead and around eyes appeared after vomiting episode) Medical Decision Making Saad Inquiry Pt receiving controlled substance: No Saad was queried for this patient: No Vital Signs: 08/18/23 16:25 Temperature 98.7 F Temperature Source Oral Pulse Rate [Left Brachial] 101 H Respiratory Rate 21 Blood Pressure [Left Arm] 130/86 Blood Pressure Mean [Left Arm] 100 Blood Pressure Source [Left Arm] Automatic Cuff Blood Pressure Position [Left Arm] Sitting 02 Sat by Pulse Oximetry 100 Oxygen Delivery Method Room Air Lab Data Lab results reviewed: Yes I reviewed the patient's lab results.
[2023-08-18 16:45] LABS: UTC Strep Screen (Rapid) Negative (Negative)
[2023-08-18 16:57] VITALS: BP 130/86; PULSE 101; RESP 21; TEMP 37.1; O2SAT 100
== END 2023-08-18 17:00 | disposition home or self-care (01) ==
PROVIDERS: Emergency Provider Nurse Practitioner
DX: R50.9 Fever, unspecified (principal); R21 Rash and other nonspecific skin eruption; R11.2 Nausea with vomiting, unspecified; B34.9 Viral infection, unspecified; I10 Essential (primary) hypertension; F17.290 Nicotine dependence, other tobacco product, uncomplicated
CPT/HCPCS: 87880; 99212; 99214; G0463

== ENCOUNTER 2023-10-20 13:11 | Outpatient (CLI) | payer OTHER, SELFPAY ==
[2023-10-20 13:23] LABS: Microscopic, Urine URINE MICROSCOPIC (MICROSCOPIC)
[2023-10-20 13:42] LABS: Appearance,Urine CLEAR (Clear); Blood, Urine Negative (Negative); Color,Urine YELLOW (Yellow); Glucose,Urine (UA) Negative (Negative); Ketones,Urine Negative (Negative); Leukocyte Esterase,Urine Negative (Negative); Nitrate,Urine Negative (Negative); PH,Urine 5.5 (5.0-8.5); Protein,Urine Negative (Negative); Specific Gravity, Urine >= 1.030 (1.005-1.030); Urobilinogen,Urine 0.2 EU/dl (0.2)
[2023-10-20 13:45] LABS: Bilirubin,Urine 1+ (Negative)
[2023-10-20 14:02] LABS: Basophils # 0.1 K/mm3 (0-0.2); Basophils % 1.4 % (0.1-2.0); Eosinophils # 0.1 K/mm3 (0.0-0.4); Eosinophils % 3.1 % (0.1-12.0); Hemoglobin 17.1 g/dL (14.1-18.0); Lymphocytes # 1.9 K/mm3 (0.7-4.5); Lymphocytes % 42.8 % (10-50); Mean Corpuscular HGB Conc 34.1 g/dL (31.8-35.4); Mean Corpuscular Hemoglobin 30.3 pg (27.0-31.2); Mean Corpuscular Volume 88.8 fl (80-94); Mean Platelet Volume 10.2 fl (7.4-10.4); Monocytes # 0.2 K/mm3 (0.1-1.0); Monocytes % 4.1 % (1.7-9.3); Neutrophils # 2.1 K/mm3 (1.8-7.8); Neutrophils % 48.7 % (37.0-80.0); Platelet Count 151 K/mm3 (142-424); Red Blood Count 5.63 M/mm3 (4.60-6.20); Red Cell Distribution Width 13.8 % (11.5-17.5); White Blood Count 4.3 K/mm3 (4.8-10.8)
[2023-10-20 14:05] LABS: Blood Urea Nitrogen 13 mg/dl (9-20); Calcium 9.9 mg/dl (8.4-10.2); Carbon Dioxide 24 mmol/L (22.0-30.0); Chloride 106 mmol/L (98-107); Estimated Glomerular Filt Rate 90 ml/min (>60); GFR (African American) 108 ML/MIN (>60); Glucose 146 mg/dl (74-100); Sodium 140 mmol/L (136-145)
[2023-10-20 14:14] LABS: Anion Gap 14.3 mEq/L (5-15); Potassium 4.3 mmoL/L (3.5-5.1)
[2023-10-20 14:31] LABS: Mucus,Urine Trace /lpf; Squamous Epithelial Cell,Urine Occasional #/hpf (0-5)
== END 2023-10-20 23:59 | disposition home or self-care (01) ==
LOC: LAB 13:12
PROVIDERS: PCP Internal Medicine Adolescent Medicine; Visit Provider Surgery
DX: K40.90 Unilateral inguinal hernia, without obstruction or gangrene, not specified as recurrent (principal)
CPT/HCPCS: 36415; 80048; 81001; 85025

== ENCOUNTER 2023-10-27 06:01 | Day surgery (SDC) | payer OTHER, SELFPAY ==
[2023-10-23 10:45] VITALS: BMI 40.3
[2023-10-27] VITALS (11 sets, daily range): BP systolic 107–134; BP diastolic 64–84; PULSE 102–117; RESP 15–24; TEMP 36.3–43; O2SAT 90–97
--- NOTE | 2023-10-27 06:55 | EXP.GEN.HP ---
HPI HPI HPI: Patient is a 28-year-old male with a couple year history of enlarging progressively symptomatic left inguinal hernia. [facility] Disclaimer: The information contained in this section may have been updated after the patient was seen, as this information can be updated by other users. Medical History Hypertension Surgical History History of tooth extraction History of tonsillectomy Family History Other Heart attack Hypertension Social History (Updated 10/27/23 @ 06:35 by Leni Callahan RN) Smoking Status: Current some day smoker tobacco type: smokeless tobacco alcohol intake: never current occupational status: unemployed Travel in the last 8 weeks: None caffeine: Yes Meds Home Medications and Allergies Home Medications Medication Instructions Recorded Confirmed Type phentermine 37.5 mg capsule 37.5 mg PO DAILY 10/23/23 10/27/23 History New Prescriptions to Start Prescriptions: Allergies Allergy/AdvReac Type Severity Reaction Status Date / Time No Known Allergies Allergy Verified 10/27/23 06:31 Exam Constitutional Constitutional: no acute distress *Routine HEENT Exam Head: Present normocephalic Eye: Present EOMI and PERRL ENT: Present mucous membranes moist *Routine Neck Exam Neck: Present supple; Absent lymphadenopathy *Routine Respiratory Exam Respiratory: Present CTA bilaterally *Routine Cardiovascular Exam Cardiovascular: Present RRR *Routine Abdominal Exam Abdominal: Present soft and hernia; Absent tenderness Comments: Rather large likely indirect left inguinal hernia *Routine Rectal Exam Rectal:: deferred *Routine Genitalia Exam Genitalia:: normal male *Routine Extremities Exam Extremities: Absent cyanosis, clubbing or edema *Routine Skin Exam Skin: Present warm; Absent rash *Routine Neurological Exam Neurological: Present alert and oriented X3 Assessment and Plan *Assessment and plan (1) Inguinal hernia unilateral, non-recurrent: Status: Acute Category: Medical Code(s): K40.90 - Unilateral inguinal hernia, without obstruction or gangrene, not specified as recurrent Plan I discussed the options with the patient. He would like to pursue repair. Plan will be for open left inguinal hernia repair.
[2023-10-27] MEDS: LACTATED RINGERS 1000ML 1,000 ML 100 ML IV (06:57)
--- NOTE | 2023-10-27 07:03 | P.PNANES_ITS ---
[facility] Disclaimer: The information contained in this section may have been updated after the patient was seen, as this information can be updated by other users. Medical History Hypertension Surgical History History of tooth extraction History of tonsillectomy Family History Other Heart attack Hypertension Social History Smoking Status: Current some day smoker tobacco type: smokeless tobacco alcohol intake: never substance use type: denies use current occupational status: unemployed Travel in the last 8 weeks: None caffeine: Yes [facility] Anesthesia Checklist Patient Identification Patient Identification: Arm Band and Verbal (Name & ) Structural Data Admitted From: Home Planned Operative Procedure/s: Left inguinal hernia repair Consent for Planned Operative Procedure(s) Verified: Yes Verified Documents: Surgical Consent NPO Status Verified Time NPO: 00:00 Chart Verification Results Verified: CBC and BMP Additional verifications Anesthesia Reactions: No Hx Blood Transfusions: No Blood Transfusion Reaction: No Airway Assessment Mallampati Score:: Class IV C-Spine Mobility Assessed: Yes TMJ Mobility Assessed: Yes Dentition: Good Dentition Neurological Assessment Level of Consciousness: Awake Hx Seizures: No Numbness or tingling in extremities: No Anesthesia Plan Anesthesia Risk discussed: Yes Anesthesia Plan: Verified ASA Class: II Anesthesia Type: General
[2023-10-27] MEDS: ROPIVACAINE 0.5% 30ML VIAL 150 MG (07:30)
[2023-10-27] MEDS: CEFAZOLIN SODIUM 2 GM in 0.9 % SODIUM CHLORIDE 100 ML IV (07:30)
[2023-10-27] MEDS: LIDOCAINE 1% 10ML MDV 10 ML ×2 (07:30)
--- NOTE | 2023-10-27 09:28 | P.OP_ITS ---
Date of procedure: 10/27/23 Pre-op Diagnosis:: Left inguinal hernia Post-op Diagnosis:: Same Procedure performed:: Open repair of left inguinal hernia with placement of extra-large Bard prefix mesh with onlay mesh. Surgeon:: Rob Vargas MD [employer] ADMINISTRATOR:: Butch Lucero Anesthesia: GETA Estimated blood loss (mL): 30 Operative findings:: He had a very large indirect hernia. There was a significant amount of subcutaneous tissue above the external oblique muscle. He had a very thickened cord and large indirect hernia. Operative note:: Patient was taken to the operating room. He was given preoperative intravenous antibiotics. In the operating room he was placed in the supine position. General anesthesia was induced. Godwin catheter was placed. Lower abdomen and perineum were prepped and draped in the standard surgical fashion. Oblique incision was made in the left inguinal area superior to landmarks identifying the inguinal ligament. Dissection was carried down through subcutaneous tissues and Lakhwinder's fascia. He had a very significant amount of subcutaneous tissue. External oblique muscle was cleaned free and opened along the length of its fibers. Underlying cord structures were identified. The ilioinguinal nerve was identified and protected and preserved. Cord structures were quite thickened with large amount of herniated tissue and large hernia sac. Prolonged dissection was carried out ultimately identifying the hernia sac and dissecting it free from the thickened cord structures. Dissection was carried down to the internal ring. Hernia sac was opened. Contents were reduced. Hernia sac was ligated with 2-0 Vicryl. Extraneous peritoneum of the hernia sac was incised and sent off as a specimen. Residual peritoneum of the hernia sac was reduced below the internal ring. Repair was made placing extra-large Bard prefix mesh plug in the region of the internal ring and suturing with interrupted 2-0 PDS to the shelving edge of the inguinal ligament and to transversalis muscle fascia. The onlay mesh was then sutured to Evan's ligament and along the shelving edge of the inguinal ligament with running 2-0 PDS suture. It was secured superior medially to transversalis muscle with interrupted 2-0 PDS horizontal mattress sutures. The 2 tails of the mesh were used to encircle the cord structures and sutured to 1 another with several interrupted 2-0 PDS sutures to reconstruct the internal ring. Cord structures and ilioinguinal nerve returned to the normal anatomic position. Local anesthetic was infiltrated into the deep muscle tissue and for inguinal nerve block. External oblique muscle was closed over the cord structures and nerve using a running 2-0 Vicryl suture. Lakhwinder's fascia was closed with running 2-0 Vicryl suture. Subdermal tissues were reapproximated with several interrupted 3-0 Vicryl. Skin was closed with 4-0 Monocryl in a running subcuticular fashion. Steri-Strips and dressings were applied. . Condition: stable Disposition: PACU Complications:: None immediately apparent
--- NOTE | 2023-10-27 09:40 | P.PNANES_ITS ---
[facility] Anesthesia Record Part I Anesthesia Record I Intake, IV Amount: 1,300 Hydration: Adequate Estimated blood loss (mL): 40 Urine output (mL): 100 Blood Pressure: 126/79 SaO2: 93 Pulse Rate: 109 Airway Patency: Patent Respiratory Rate: 24 Temperature: 98.3 F Patient is:: Awake Stable to PACU at:: 09:34
[2023-10-27 10:03] LABS: Microscopic,Cath URINE MICROSCOPIC (MICROSCOPIC)
[2023-10-27 10:06] LABS: Appearance,Urine/Cath CLEAR (Clear); Blood, Urine/Cath Negative (Negative); Color,Urine/Cath YELLOW (Yellow); Glucose,Urine/Cath (UA) Negative (Negative); Ketones,Urine/Cath Negative (Negative); Leukocyte Esterase,Cath Negative (Negative); Nitrate,Cath Negative (Negative); PH,Urine/Cath 5.5 (5.0-8.5); Protein,Urine/Cath Negative (Negative); Specific Gravity, Urine/Cath >= 1.030 (1.005-1.030)
[2023-10-27 11:06] LABS: Bilirubin,Cath Negative (Negative)
[2023-10-27 11:46] LABS: Bacteria,Urine/Cath TRACE /lpf; Squamous Epithelial Ur./Cath Occasional #/hpf (0-5)
[2023-10-28 07:27] VITALS: BP 113/68; PULSE 117; RESP 15; TEMP 36.3; O2SAT 97
--- NOTE | 2023-10-28 07:27 | EXP.ANES.II ---
[facility] Anesthesia Record Part II Anesthesia Record Part II Discharge Time: 09:54 Destination: Surgical Day Care (OP Surgery) PACU nurse assessment reviewed?: Yes Patient Condition:: Good Anesthesia Complications:: None Swallowing reflex intact?: Yes Airway Patency: Patent Cyanosis?: No Blood Pressure: 113/68 SaO2: 97 Respiratory Rate: 15 Pulse Rate: 117 Temperature: 97.3 F Mental Status: Alert & Oriented Pain level:: 0 Nausea and/or vomitting:: None Intake, IV Amount: 0 Hydration: Adequate
== END 2023-10-27 10:45 | disposition home or self-care (01) ==
PROVIDERS: PCP Internal Medicine Adolescent Medicine; Visit Provider Surgery
PROC: (CPT 49505; principal; 2023-10-27 07:30)
DX: K40.90 Unilateral inguinal hernia, without obstruction or gangrene, not specified as recurrent (principal)
CPT/HCPCS: 49505; 81001; 96374; J3490; J0131; J2405

== ENCOUNTER 2024-02-10 18:45 | Emergency (ER) | payer OTHER, SELFPAY ==
[2024-02-10 19:50] VITALS: BP 118/56; PULSE 96; RESP 20; TEMP 36.9; O2SAT 98; BMI 33.2
--- NOTE | 2024-02-10 20:01 | EXP.UTC ---
Discharge Plan Disposition Patient Disposition: Home, Self-Care Condition: Good Prescriptions Prescriptions: New enksxqwjynlyceb-gjiiiuyjf-WE [Bromfed DM] 2-30-10 mg/5 mL Syrup 5 ml PO Q6H PRN (Reason: Cough) Qty: 240 0RF ondansetron 4 mg Tablet,Disintegrating 4 mg PO Q8H PRN (Reason: Nausea) Qty: 8 0RF No Action phentermine 37.5 mg Capsule 37.5 mg PO DAILY Rx Instructions: must administer 30 minutes before or 1-2 hours after breakfast Referrals Follow up/Referrals: Juan José Parker MD [Primary Care Provider] - See instructions Activity Restrictions/Add. Instructions Additional Instructions/Restrictions: Drink plenty of fluids. Take tylenol or ibuprofen for pain or fever. Take the medications as directed. Follow up with your regular doctor. GO TO THE ER FOR ANY WORSENING SYMPTOMS Clinical Impressions Clinical Impression: COVID-19 Stand Alone Forms Stand Alone Forms: Work/School Release Instructions Patient Instructions: Coronavirus Disease 2019, Preventing the Spread of Coronavirus Discharge Instructions Print Language Print Language: [place] Discharge ED Provider: Babatunde Cole [facility] General Stated complaint: covid + Time Seen by Provider: 02/10/24 19:57 Related Data Home Medications ?Medication ?Instructions ?Recorded ?Confirmed phentermine 37.5 mg capsule 37.5 mg PO DAILY 10/23/23 11/27/23 Previous Rx's ?Medication ?Instructions ?Recorded eagkvtidgbcrvlt-karoplifudaykmj-TQ 5 ml PO Q6H PRN Cough #240 mL 02/10/24 2 mg-30 mg-10 mg/5 mL oral syrup (Bromfed DM) ondansetron 4 mg disintegrating 4 mg PO Q8H PRN Nausea #8 tabs 02/10/24 tablet Allergies Allergy/AdvReac Type Severity Reaction Status Date / Time No Known Allergies Allergy Verified 11/27/23 09:02 [facility] Disclaimer: The information contained in this section may have been updated after the patient was seen, as this information can be updated by other users. Medical History (Updated 02/10/24 @ 20:34 by Babatunde Cole APRN) Hypertension Surgical History (Updated 11/27/23 @ 09:04 by JAS Higgins) History of inguinal hernia repair History of tooth extraction History of tonsillectomy Family History Other Heart attack Hypertension Social History Smoking Status: Current some day smoker tobacco type: smokeless tobacco alcohol intake: never substance use type: denies use current occupational status: unemployed Travel in the last 8 weeks: None caffeine: Yes ROS Obtained: Yes All systems reviewed & no additional complaints except as documented Constitutional Constitutional: Reports chills and Reports fever(s) Eyes Eyes: Denies eye discharge ENT Ears, Nose, Mouth, and Throat: Reports as per HPI Cardiovascular Cardiovascular: Denies chest pain Respiratory Respiratory: Denies chest congestion and Reports cough Gastrointestinal Gastrointestingal: Reports nausea; Denies abdominal pain, constipation, cramping, diarrhea or vomiting Musculoskeletal Musculoskeletal: Denies arthralgias Integumentary/Breasts Skin/Breast: Denies rash Neurologic Neurologic: Denies paresthesias Physical Exam General General appearance: alert and in no apparent distress Head Head exam: atraumatic, normocephalic and normal inspection Eye Eye exam: Present normal appearance, PERRL and EOMI ENT ENT exam: Present normal exam, normal oropharynx, mucous membranes moist, TM's normal bilaterally and normal external ear exam Neck Neck exam: Present normal inspection, full ROM and trachea midline; Absent meningismus or lymphadenopathy Chest Chest inspection: Present normal inspection and symmetric chest wall rise; Absent tenderness Respiratory Respiratory exam: Present normal lung sounds bilaterally; Absent respiratory distress Cardiovascular Cardiovascular exam: Present regular rate and normal rhythm; Absent JVD Abdominal Exam Abdominal exam: Present soft and normal bowel sounds; Absent distention, tenderness or guarding Extremities Exam Extremities exam: Present normal inspection, full ROM and normal capillary refill; Absent calf tenderness Back Exam Back exam: Present normal inspection; Absent tenderness Neurological Exam Neurological exam: Present alert and oriented X3 Psychiatric Psychiatric exam: Present normal affect and normal mood Skin Skin exam: Present warm, dry, intact and normal color Lymphatic Lymphatic Findings: no adenopathy Medical Decision Making Medical Records Medical records reviewed: No I reviewed the patient's medical records. Saad Inquiry Pt receiving controlled substance: No
[2024-02-10 20:27] VITALS: BP 118/56; PULSE 96; RESP 20; TEMP 36.9; O2SAT 98
== END 2024-02-10 20:40 | disposition home or self-care (01) ==
PROVIDERS: Emergency Provider Nurse Practitioner Family; PCP Internal Medicine Adolescent Medicine
DX: U07.1 COVID-19 (principal); R11.0 Nausea
CPT/HCPCS: 87635; 99212; 99214; G0463

== ENCOUNTER 2024-06-01 12:42 | Emergency (ER) | payer OTHER, SELFPAY ==
--- NOTE | 2024-06-01 14:01 | ED_ITS ---
Discharge Plan Disposition Patient Disposition: Home, Self-Care Condition: Good Prescriptions Prescriptions: New ondansetron 4 mg Tablet,Disintegrating 4 mg PO Q8H PRN (Reason: Nausea) Qty: 12 0RF No Action phentermine 37.5 mg Capsule 37.5 mg PO DAILY Rx Instructions: must administer 30 minutes before or 1-2 hours after breakfast wyujzyqsxrppktv-tppjepxts-PP [Bromfed DM] 2-30-10 mg/5 mL Syrup 5 ml PO Q6H PRN (Reason: Cough) Qty: 240 0RF ondansetron 4 mg Tablet,Disintegrating 4 mg PO Q8H PRN (Reason: Nausea) Qty: 8 0RF Referrals Follow up/Referrals: Juan José Parker MD [Primary Care Provider] - See instructions Activity Restrictions/Add. Instructions Additional Instructions/Restrictions: Drink plenty of fluids. Take tylenol or ibuprofen for pain or fever. Take the medications as directed. Follow up with your regular doctor. GO TO THE ER FOR ANY WORSENING SYMPTOMS Clinical Impressions Clinical Impression: Acute viral syndrome, Gastroenteritis Stand Alone Forms Stand Alone Forms: Work/School Release Instructions Patient Instructions: Viral Gastroenteritis, DI for Viral Gastroenteritis -- Adult, Ondansetron Print Language Print Language: [place] Discharge ED Provider: Babatunde Cole [facility] General Stated complaint: vomiting, diarrhea, weak, light headed Time Seen by Provider: 06/01/24 13:59 Related Data Home Medications ?Medication ?Instructions ?Recorded ?Confirmed phentermine 37.5 mg capsule 37.5 mg PO DAILY 10/23/23 06/01/24 Previous Rx's ?Medication ?Instructions ?Recorded cfjfmnopwcshpkw-idyftcbcrkggxpf-DD 5 ml PO Q6H PRN Cough #240 mL 02/10/24 2 mg-30 mg-10 mg/5 mL oral syrup (Bromfed DM) ondansetron 4 mg disintegrating 4 mg PO Q8H PRN Nausea #8 tabs 02/10/24 tablet ondansetron 4 mg disintegrating 4 mg PO Q8H PRN Nausea #12 tabs 06/01/24 tablet Allergies Allergy/AdvReac Type Severity Reaction Status Date / Time No Known Allergies Allergy Verified 11/27/23 09:02 [facility] Disclaimer: The information contained in this section may have been updated after the patient was seen, as this information can be updated by other users. Medical History (Updated 06/01/24 @ 14:40 by Babatunde Cole APRN) Hypertension Surgical History (Updated 11/27/23 @ 09:04 by JAS Higgins) History of inguinal hernia repair History of tooth extraction History of tonsillectomy Family History Other Heart attack Hypertension Social History Smoking Status: Current some day smoker tobacco type: smokeless tobacco alcohol intake: never substance use type: denies use current occupational status: unemployed Travel in the last 8 weeks: None caffeine: Yes Have you lived/traveled outside [place] in past 30 days?: No Contact w/someone who lives/traveled outside US past 30 days?: No Exposure to someone with infectious disease in past 14 days?: No Do you have a fever (greater than 100.4 F or 38 C)?: No Have you tested positive for COVID-19: No Exposed to someone with COVID-19 in past 14 days?: No Do you have a sore throat?: No Do you have a cough?: No Do you have any weakness?: Yes Do you have any diarrhea?: Yes Are you experiencing any unusual bleeding?: No Do you have any muscle aches/pain?: No Do you have any abdominal pain?: No Are you experiencing loss of taste or smell?: No ROS Obtained: Yes All systems reviewed & no additional complaints except as documented Constitutional Constitutional: Denies chills, Denies fever(s) and Reports poor appetite ENT Ears, Nose, Mouth, and Throat: Denies dizziness and Denies sore throat Cardiovascular Cardiovascular: Denies dyspnea Respiratory Respiratory: Denies chest congestion, Denies cough and Denies dyspnea Gastrointestinal Gastrointestingal: Reports as per HPI Musculoskeletal Musculoskeletal: Denies arthralgias Integumentary/Breasts Skin/Breast: Denies rash Neurologic Neurologic: Denies dizziness Physical Exam General General appearance: alert and in no apparent distress Head Head exam: atraumatic and normocephalic Eye Eye exam: Present normal appearance, PERRL and EOMI ENT ENT exam: Present normal exam, normal oropharynx, mucous membranes moist, TM's normal bilaterally and normal external ear exam Neck Neck exam: Present normal inspection, full ROM and trachea midline; Absent tenderness, meningismus or lymphadenopathy Chest Chest inspection: Present normal inspection and symmetric chest wall rise; Absent tenderness, rash or abscess Respiratory Respiratory exam: Present normal lung sounds bilaterally; Absent respiratory distress, wheezes or stridor Cardiovascular Cardiovascular exam: Present regular rate and normal rhythm; Absent irregular rhythm, systolic murmur, diastolic murmur or JVD Abdominal Exam Abdominal exam: Present soft and hyperactive bowel sounds; Absent distention, tenderness, guarding, rebound, rigidity, psoas sign, obturator sign, heel tap sign, Barker's sign, Rovsing's sign or tenderness at McBurney's Point Extremities Exam Extremities exam: Present normal inspection and full ROM; Absent tenderness Back Exam Back exam: Present normal inspection and full ROM; Absent tenderness, CVA tenderness (R) or CVA tenderness (L) Neurological Exam Neurological exam: Present alert, oriented X3 and CN II-XII intact Psychiatric Psychiatric exam: Present normal affect and normal mood Skin Skin exam: Present warm, dry, intact and normal color Lymphatic Lymphatic Findings: no adenopathy Medical Decision Making Medical Records Medical records reviewed: No I reviewed the patient's medical records. Screening: Per USPSTF and CDC recommendations, given the prevalence of disease in our region, it is our hospital?s policy to screen for HIV and viral Hepatitis for all patients aged 18 and over and those with ongoing risk factors. Saad Inquiry Pt receiving controlled substance: No
[2024-06-01 14:06] VITALS: BP 125/85; PULSE 105; RESP 18; TEMP 37.2; O2SAT 97; BMI 29.8
[2024-06-01 14:45] VITALS: BP 125/85; PULSE 105; RESP 18; TEMP 37.2
[2024-06-01 14:50] LABS: Coronavirus 19, PCR Not Detected (NotDetected); Influenza A, PCR Not Detected (NotDetected); Influenza B, PCR Not Detected (NotDetected)
== END 2024-06-01 14:47 | disposition home or self-care (01) ==
PROVIDERS: Emergency Provider Nurse Practitioner Family; PCP Internal Medicine Adolescent Medicine
DX: K52.9 Noninfective gastroenteritis and colitis, unspecified (principal); B34.9 Viral infection, unspecified; R11.10 Vomiting, unspecified; R53.1 Weakness; R42 Dizziness and giddiness; R63.8 Other symptoms and signs concerning food and fluid intake
CPT/HCPCS: 87636; 99212; G0381

== ENCOUNTER 2025-03-10 15:21 | Emergency (ER) | payer OTHER, SELFPAY ==
[2025-03-10 15:25] VITALS: BP 127/85; PULSE 107; RESP 15; TEMP 36.8; O2SAT 100; BMI 27.6
--- OUTSIDE RECORDS SUMMARY | 2025-03-10 15:32 | XMS_ITS | Clinical Summary ---
Author Organization [facility] Address [address] [place] [id number] Phone [email or web address] Care Team Providers Care Butcher'S Assistant Name Role Phone Unavailable Primary Care Provider Unavailabl e Allergies No known active allergies Medications No known medications Active Problems No known active problems Social History Tobacco Use Types Packs/Day Years Used Date Smoking Tobacco: Never Smokeless Tobacco: Current Intimate Partner Violence Answer Date R ecorded Insults You Not on file 01/10/2021 Threatens You Not on file 01/10/2021 Screams at You Not on file 01/10/2021 Physically Hurt Not on file 01/10/2021 Intimate Partner Violence Score Not on file 01/10/2021 Depression Answer Date Recorded PHQ Total Score Not on file 06/22/2022 Stress Answer Date Recorded Stress in your Life Not on file 04/14/2024 Dealing with Stress 3 04/14/2024 Sex and Gender Information Value Date Recorded Sex Assigned at Not on file Legal Sex Male 6:26 PM CDT Gender Identity Not on file Sexual Orientation Not on file Last Filed Vital Signs Vital Sign Reading Time Taken Comments Blood Pressure 160/93 06/18/2021 8:43 PM EST Pulse 96 06/18/2021 8:43 PM EST Temperature 36.2 C (97.2 F) 06/18/2021 8:43 PM EST Respiratory Rate 18 06/18/2021 8:43 PM EST Oxygen Saturation 99% 06/18/2021 8:43 PM EST Inhaled Oxygen Concentration - - Weight 122 kg (269 lb 1.6 oz) 01/10/2021 11:19 A M EDT Height 175.3 cm (5' 9 ) 01/10/2021 11:19 AM EDT Body Mass Index 39.74 01/10/2021 11:19 AM EDT Plan of Treatment Health Maintenance Due Date Last Done Comments Dental Cleaning/Exam 1996 HIV Screening 1996 Hepatitis C Screening 1996 HPV Immunization (1 - Male 3 -dose series) 2011 Hep B Infection Screening - Triple Screen 2014 Hepatitis B Immunization (1 of 3 - 19+ 3-dose series) 2015 Tetanus Diphtheria and Pertu ssis Immunization (1 - Tdap) 2015 Annual Preventive Exam 01/10/2022 01/10/2021 Covid-19 Immunization (1 - 2 024-25 season) 2025 Influenza Immunization (#1) 2025 HIB Immunization Aged Out No longer e ligible based on patient's age to complete this topic Hepatitis A Immunization Aged Out No longer eligible based on patient's age to complete this topic Pneumococcal Immunization Aged Out No longer eligible based on patient's age to complete this topic Polio Immunization Aged Out No longer eligible based on patient's age to complete this topic Varicella Immunization Aged Out No lo nger eligible based on patient's age to complete this topic Insurance OPT OUT NO COPAY NB
[2025-03-10 15:34] LABS: Coronavirus 19, PCR Not Detected (NotDetected); Influenza A, PCR Not Detected (NotDetected); Influenza B, PCR Not Detected (NotDetected)
[2025-03-10 15:56] LABS: Hematocrit 50.0 % (42.0-52.0); Hemoglobin 17.8 g/dL (14.1-18.0); Immature Granulocytes % 0.3 %; Mean Corpuscular HGB Conc 35.6 g/dL (31.8-35.4); Mean Corpuscular Hemoglobin 29.9 pg (27.0-31.2); Mean Corpuscular Volume 84.0 fl (80-94); Nucleated Red Blood Cells % 0 %; Platelet Count 150 K/mm3 (142-424); Red Blood Count 5.95 M/mm3 (4.60-6.20); Red Cell Distribution Width-SD 38.7 fL; White Blood Count 6.4 K/mm3 (4.8-10.8)
[2025-03-10 16:02] LABS: Alanine Aminotransferase 28 U/L (12-78); Albumin Level 4.8 g/dl (3.5-5.0); Albumin/Globulin Ratio 2.0 (1.1-1.8); Alkaline Phosphatase 77 U/L (38-126); Anion Gap 16.2 mEq/L (5-15); Aspartate Amino Transferase 29 U/L (17-59); Bilirubin,Total 1.3 mg/dl (0.2-1.3); Blood Urea Nitrogen 10 mg/dl (9-20); Calcium 9.7 mg/dl (8.4-10.2); Carbon Dioxide 24 mmol/L (22.0-30.0); Chloride 103 mmol/L (98-107); Creatinine Clearance Estimated 165 mL/min (50-200); Creatinine,Serum 0.80 mg/dl (0.66-1.25); Estimated Glomerular Filt Rate 115 ml/min (>60); GFR (African American) 139 ML/MIN (>60); Globulin 2.4 g/dL (1.3-3.2); Glucose 85 mg/dl (74-100); Lipase 34 U/L (23-300); Magnesium 1.9 mg/dl (1.6-2.3); Potassium 4.2 mmoL/L (3.5-5.1); Sodium 139 mmol/L (136-145); Total Protein,Serum 7.2 g/dl (6.3-8.2)
[2025-03-10] MEDS: BELLADONNA ALKALOIDS 60 ML ML PO (16:02)
[2025-03-10] MEDS: KETOROLAC 30MG/ML VIAL 30 MG IV (16:03)
[2025-03-10] MEDS: 0.9 % SODIUM CHLORIDE 1000ML 1,000 ML 999 ML IV (16:03)
--- NOTE | 2025-03-10 16:03 | ED_ITS ---
Discharge Plan Disposition Chief Complaint: Abdominal Pain Prescriptions Prescriptions: No Action ondansetron 4 mg Tablet,Disintegrating 4 mg PO Q8H PRN (Reason: Nausea) Qty: 12 0RF phentermine 37.5 mg Capsule 37.5 mg PO DAILY Rx Instructions: must administer 30 minutes before or 1-2 hours after breakfast [id number]-[id number]-SF [Bromfed DM] 2-30-10 mg/5 mL Syrup 5 ml PO Q6H PRN (Reason: Cough) Qty: 240 0RF ondansetron 4 mg Tablet,Disintegrating 4 mg PO Q8H PRN (Reason: Nausea) Qty: 8 0RF Referrals Follow up/Referrals: Juan José Parker MD [Primary Care Provider, Internal Medicine] - See instructions Instructions Patient Instructions: DI for Acute Abdominal Pain Print Language Print Language: Ukrainian Discharge ED Provider: Julisa Samaniego General Adult HPI General Chief complaint: Abdominal Pain Stated complaint: diarrhea, stomach pain Time Seen by Provider: 03/10/25 15:36 Mode of Arrival: Ambulatory Source of Information: Patient and Spouse Description of Symptoms (Recalled from ER Triage Doc. by RN): malcom presents to the Ed with abdominal pain he is currently rating 8/10 and diarrhea that all began yesterday. patient stated he does take adapex but has been taking it for a while with no dose changes recently. History of Present Illness HPI narrative: Patient is a 21-year-old male with no significant past medical history with one prior hernia repair tonsillectomy who presented to the emergency department with abdominal pain, diarrhea and nausea. Patient states that he started having some diarrhea yesterday had multiple episodes that has since resided. Patient reports nausea but no vomiting. Patient denies any fevers or upper respiratory symptoms. Patient denies any chest pain or shortness of breath. Patient states that if he is sitting up his abdominal pain is not present. Patient states to be lying flat he has a pain that radiates across his abdomen. Patient denies any alcohol use or other drug use. Patient states that his pain is intermittent in nature. No blood in his diarrhea. Related Data Home Medications ?Medication ?Instructions ?Recorded ?Confirmed phentermine 37.5 mg capsule 37.5 mg PO DAILY 10/23/23 06/01/24 Previous Rx's ?Medication ?Instructions ?Recorded pnitoftddsalwqr-phxzqzasvxbxhec-GG 5 ml PO Q6H PRN Cou gh #240 mL 02/10/24 2 mg-30 mg-10 mg/5 mL oral syrup (Bromfed DM) ondansetron 4 mg disintegrating 4 mg PO Q8H PRN Nausea #8 tabs 02/10/24 tablet ondansetron 4 mg disintegrating 4 mg PO Q8H PRN Nausea #12 tabs 06/01/24 tablet Allergies Allergy/AdvReac Type Severity Reaction Status Date / Time No Known Allergies Allergy Verified 11/27/23 09:02 [facility] Disclaimer: The information contained in this section may have been updated after the patient was seen, as this information can be updated by other users. Medical History Hypertension Surgical History History of inguinal hernia repair History of tooth extraction History of tonsillectomy Family History Other Heart attack Hypertension Social History Smoking Status: Never smoker alcohol intake: never substance use type: denies use current occupational status: unemployed Travel in the last 8 weeks?: None caffeine: Yes Have you lived/traveled outside [place] in past 30 days?: No Contact w/someone who lives/traveled outside [place] past 30 days?: No Exposure to someone with infectious disease in past 14 days?: No Do you have a fever (greater than 100.4 F or 38 C)?: No Have you tested positive for COVID-19?: No Exposed to someone with COVID-19 in past 14 days?: No Do you have a sore throat?: No Do you have a cough?: No Do you have any weakness?: No Do you have any diarrhea?: Yes Are you experiencing any unusual bleeding?: No Do you have any muscle aches/pain?: Yes Do you have any abdominal pain?: Yes Are you experiencing loss of taste or smell?: No Other Medical History Have you received the Flu Vaccine for this season: No Have you received the Pneumonia Vaccine: No ROS Obtained: Yes All systems reviewed & no additional complaints except as documented and Yes Systems reviewed as appropriate & no additional complaints except as documented Physical Exam General General appearance: alert and in no apparent distress Head Head exam: atraumatic, normocephalic and normal inspection Eye Eye exam: Present normal appearance, PERRL and EOMI; Absent scleral icterus ENT ENT exam: Present normal exam and normal external ear exam Neck Neck exam: Present normal inspection and full ROM Chest Chest inspection: Present normal inspection and symmetric chest wall rise Respiratory Respiratory exam: Present normal lung sounds bilaterally; Absent respiratory distress or wheezes Cardiovascular Cardiovascular exam: Present regular rate, normal rhythm and normal heart sounds Abdominal Exam Abdominal exam: Present soft, distention and tenderness (epigastric, no lower abdominal tenderness); Absent guarding or rebound Extremities Exam Extremities exam: Present normal inspection and full ROM Back Exam Back exam: Present normal inspection and full ROM Neurological Exam Neurological exam: Present alert and oriented X3 Psychiatric Psychiatric exam: Present normal affect and normal mood Skin Skin exam: Present warm and dry Medical Decision Making Medical Records Medical records reviewed: Yes I reviewed the patient's medical records. Screening: Per USPSTF and CDC recommendations, given the prevalence of disease in our region, it is our hospital?s policy to screen for HIV and viral Hepatitis for all patients aged 18 and over and those with ongoing risk factors. Saad Inquiry Pt receiving controlled substance: No Vital Signs: 03/10/25 15:25 03/10/25 16:30 03/10/25 16:45 Temperature 98.3 F Temperature Source Oral Pulse Rate 77 73 Pulse Rate [Right Radial] 107 H Respiratory Rate 15 Blood Pressure 135/83 135/83 Blood Pressure [Right Arm] 127/85 Blood Pressure Mean [Right Arm] 99 Blood Pressure Source [Right Arm] Automatic Cuff Blood Pressure Position [Right Arm] Sitting 02 Sat by Pulse Oximetry 100 98 99 Oxygen Delivery Method Room Air 03/10/25 17:00 Temperature Temperature Source Pulse Rate 77 Pulse Rate [Right Radial] Respiratory Rate Blood Pressure 125/75 Blood Pressure [Right Arm] Blood Pressure Mean [Right Arm] Blood Pressure Source [Right Arm] Blood Pressure Position [Right Arm] 02 Sat by Pulse Oximetry 99 Oxygen Delivery Method Lab Data Lab results reviewed: Yes I reviewed the patient's lab results. Lab Results 03/10/25 15:30: SARS-CoV-2 (PCR) Not detected, Influenza A Untype (PCR) Not detected, Influenza Type B (PCR) Not detected 03/10/25 15:40: WBC 6.4, RBC 5.95, Hgb 17.8, Hct 50.0, MCV 84.0, MCH 29.9, MCHC 35.6 H, RDW 12.7, Plt Count 150, MPV 10.7 H, Neut % (Auto) 63.1, Lymph % (Auto) 24.8, Morton % (Auto) 10.3 H, Eos % (Auto) 0.9, Baso % (Auto) 0.6, Neut # (Auto) 4.0, Lymph # (Auto) 1.6, Morton # (Auto) 0.7, Eos # (Auto) 0.1, Baso # (Auto) 0.0, Sodium 139, Potassium 4.2, Chloride 103, Carbon Dioxide 24, Anion Gap 16.2 H, BUN 10, Creatinine 0.80, Estimated Creat Clear 165, Estimated GFR 115, Est GFR ( Amer) 139, Glucose 85, Calcium 9.7, Magnesium 1.9, Total Bilirubin 1.3, AST 29, ALT 28, Alkaline Phosphatase 77, Total Protein 7.2, Albumin 4.8, Globulin 2.4, Albumin/Globulin Ratio 2.0 H, Lipase 34 03/10/25 15:40 03/10/25 15:40 Orders (Tests/Meds): ED MEDICATIONS Discontinued Medications Generic Name Dose Route Start Last Admin Trade Name Freq PRN Reason Stop Dose Admin Belladonna Alkaloids 60 ml 03/10/25 15:50 03/10/25 16:02 Belladonna Alkaloids 60 Ml Ml PO 03/10/25 15:51 60 ml ONCE ONE Administration Dicyclomine HCl 20 mg 03/10/25 15:50 03/10/25 16:02 Dicyclomine 10mg Capsule PO 03/10/25 15:51 20 mg ONCE ONE Administration Sodium Chloride 1,000 mls @ 999 mls/hr 03/10/25 15:50 03/10/25 17:16 Sod Chlor 0.9% 1000ml Bag IV 03/10/25 16:50 Infused .Q1H1M ONE Infusion Ketorolac Tromethamine 30 mg 03/10/25 15:50 03/10/25 16:03 Ketorolac 30mg/Ml Vial IV 03/10/25 15:51 30 mg ONCE ONE Administration ORDERS Category Date Time Status CBC w/Auto Diff [Complete Blood Count Auto Diff] Stat Lab 03/10/25 15:40 Completed CMP [Comprehensive Metabolic Panel] Stat Lab 03/10/25 15:40 Completed Lipase Stat Lab 03/10/25 15:40 Completed Magnesium Stat Lab 03/10/25 15:40 Completed Rapid PCR Covid and Flu A/B Stat Lab 03/10/25 15:30 Completed Medical Decision Narrative: Patient is an otherwise healthy 29-year-old male who presented to the emergency department with abdominal pain diarrhea and nausea. On arrival, patient was hemodynamically stable mildly tachycardic. Differential includes but not limited to: Dehydration, electrolyte abnormalities, pancreatitis, gastroenteritis, amongst others On exam, patient had mild epigastric abdominal tenderness but had no right upper quadrant tenderness. Patient had no right lower quadrant or left lower quadrant tenderness. Labs were obtained patient was given symptomatic management. CT scan was not felt to be indicated at this time as patient only had epigastric pain in nature. Patient's labs were reviewed and interpreted by myself: CBC showed no leukocytosis, hemoglobin was stable. CMP was unremarkable. Lipase was normal. Patient was given Toradol, GI cocktail and Bentyl for symptomatic management. On reassessment, patient stated that his pain was significantly improved. Patient had no epigastric abdominal tenderness on my exam. Patient was sent with omeprazole and Bentyl for symptomatic management return precautions were discussed and patient was otherwise discharged home in stable condition. Critical Care Critical Care Time Critical Care Time: No
[2025-03-10 16:30] VITALS: BP 135/83; PULSE 77; O2SAT 98
[2025-03-10 16:45] VITALS: BP 135/83; PULSE 73; O2SAT 99
[2025-03-10 17:00] VITALS: BP 125/75; PULSE 77; O2SAT 99
[2025-03-10 17:46] VITALS: BP 121/82; PULSE 78; RESP 18; TEMP 36.9; O2SAT 100
== END 2025-03-10 17:55 | disposition home or self-care (01) ==
PROVIDERS: Emergency Provider Student in an Organized Health Care Education/Training Program; PCP Internal Medicine Adolescent Medicine
DX: R10.13 Epigastric pain (principal)
CPT/HCPCS: 80053; 83690; 83735; 85025; 87636; 96361; 96374; 99284; 99285; J1885; J7030